=== PATIENT | female | born 1970 | race Caucasian/White ===

== ENCOUNTER 2016-10-10 17:18 | Emergency (ER) | payer OTHER ==
[~2016-10-10] VITALS: Ht 165.1 cm; Wt 51.4 kg
[~2016-10-10 17:18] MED LIST: BUSPAR30 MG PO; DICLOFENAC SODI75 MG PO; KEFLEX500 MG PO; OXYCODONE HCL15 MG PO; PERCOCET 5/31 TABLET PO; PROMETHAZINE HC25 M1 PO; PYRIDIUM100 MG PO; RANITIDINE HCL150 M1 PO; TIZANIDINE HCL4 MG PO; ZOLOFT100 MG PO
[2016-10-10] MEDS ORDERED: ZUBSOLV 2.9-0.1 EACH SL (17:30)
[2016-10-10] MEDS ORDERED: ONDANSETRON HCL4 MG PO (17:32)
[2016-10-10] MEDS ORDERED: OMEPRAZOLE20 M2 PO (17:32)
[2016-10-10] MEDS ORDERED: ULTRAM50 MG PO (17:53)
[2016-10-10] MEDS ORDERED: CLONIDINE HCL0.1 MG PO (17:53)
[2016-10-10 18:45] VITALS: BP 123/59
== END 2016-10-10 18:48 | disposition home or self-care (01) ==
LOC: EME 17:18
DX: F11.23 Opioid dependence with withdrawal (principal); Z71.51 Drug abuse counseling and surveillance of drug abuser; F17.200 Nicotine dependence, unspecified, uncomplicated
CPT/HCPCS: 99281; 99284

== ENCOUNTER 2017-04-10 16:04 | Emergency (ER) | payer OTHER ==
[~2017-04-10] VITALS: Ht 167.6 cm; Wt 51.6 kg
[~2017-04-10 16:04] MED LIST changes: +CLONIDINE HCL0.1 MG PO; +OMEPRAZOLE20 M2 PO; +ONDANSETRON HCL4 MG PO; +ULTRAM50 MG PO; +ZUBSOLV 2.9-0.1 EACH SL
[2017-04-10 17:23] LABS: HEMATOCRIT 39.8 % (36.0-46.0); MCH 32.8 PG (29.0-34.0); MCHC 33.4 G/DL (30.0-36.0); MCV 98.3 FL (83-99); MEAN PLAT.VOLUME 10.4 uM^3 (9.5-12.4); PLATELET COUNT 289 K/uL (156-360); RBC DIS.WIDTH-CV 12.6 % (11.8-14.6); RBC DIS.WIDTH-SD 45.3 % (39-53); RED BLOOD COUNT 4.05 M/uL (3.80-5.20); WHITE BLOOD COUNT 12.2 K/uL (4.1-10.2)
[2017-04-10 17:31] LABS: CHLORIDE 107 mEq/L (99-109); POTASSIUM 3.8 mEq/L (3.7-5.4); SODIUM 142 mEq/L (136-147)
[2017-04-10 17:33] LABS: GLUCOSE 113 mg/dL (70-99)
[2017-04-10 17:34] LABS: ANION GAP 9 MEQ/L (2-14)
[2017-04-10 17:35] LABS: TOTAL BILIRUBIN 0.8 mg/dL (0.0-1.0)
[2017-04-10 17:37] LABS: ALKALINE PHOSPHATASE 65 IU/L (3-129); GFR ESTIMATE (CALCULATED) > 59 mL/min/
[2017-04-10 17:38] LABS: UREA NITROGEN (BUN) 10 mg/dL (9-23)
[2017-04-10 17:40] LABS: LIPASE 12 U/L (1.0-51.0)
[2017-04-10 17:46] LABS: QUANTITATIVE HCG < 4.0 MIU/ML
[2017-04-10 18:08] LABS: ADD MIUA? YES; BILIRUBIN NEGATIVE; BLOOD NEGATIVE; COLOR AMBER ((YELLOW)); GLUCOSE (STRIP) NEGATIVE; KETONES 5; LEUKOCYTES NEGATIVE; NITRITE NEGATIVE; PROTEIN (STRIP) 30; SPECIFIC GRAVITY 1.027 (1.000-1.030)
[2017-04-10 18:13] LABS: BACTERIA NONE SEEN /HPF; CALCIUM OXALATE CRYSTALS 3+ /HPF; EPITHELIAL CELLS 1+ /HPF; MUCUS 4+ /LPF; RED BLOOD CELLS 20-30 /HPF (0-5); WHITE BLOOD CELLS 0-5 /HPF (0-5)
[2017-04-10] MEDS ORDERED: PROMETHAZINE HC25 M1 PO (19:12)
[2017-04-10] MEDS ORDERED: PHENERGAN25 MG PR (19:12)
[2017-04-10] MEDS ORDERED: BENTYL20 MG PO (19:13)
[2017-04-10 19:53] VITALS: BP 106/59
== END 2017-04-10 19:54 | disposition home or self-care (01) ==
LOC: EME 16:04
PROVIDERS: Physician Assistant
DX: R11.2 Nausea with vomiting, unspecified (principal); R19.7 Diarrhea, unspecified; E86.0 Dehydration; F17.200 Nicotine dependence, unspecified, uncomplicated; F32.9 Major depressive disorder, single episode, unspecified; F41.9 Anxiety disorder, unspecified
CPT/HCPCS: 80053; 81003; 83690; 84702; 85027; 99281; 99285; J2550; Q0169